=== PATIENT | female | born 1945 | race Two or more races ===

== ENCOUNTER → 2024-04-27 | Outpatient (CLI) | payer MEDICARE, BC, SELFPAY ==
[2024-04-27 13:55] LABS: Basophils % (Auto) 0 % (0-2.5); Eosinophils # (Auto) 0.1 Thou/mm3 (0.0-0.5); Eosinophils % (Auto) 1 % (0-10); Hematocrit 34.4 % (36.0-46.0); Immature Granulocytes % (Auto) 0 % (0-0); Immature Granulocytes Auto 0.02 Thou/mm3 (0.00-0.00); Lymphocytes # (Auto) 1.5 Thou/mm3 (1.0-4.8); Lymphocytes % (Auto) 27 % (10-50); Mean Corpuscular Hemoglobin 27.2 pg (25.0-35.0); Mean Corpuscular Volume 85 fL (80-100); Monocytes # (Auto) 0.4 Thou/mm3 (0.0-0.8); Monocytes % (Auto) 7 % (0-12); Neutrophils # (Auto) 3.5 Thou/mm3 (1.8-7.7); Neutrophils % (Auto) 64 % (37-80); Nucleated Red Blood Cell % 0 /100 WBC (0); Platelet Count 283 Thou/mm3 (140-440); RDW Standard Deviation 40.2 fL (36.4-46.3); Red Blood Count 4.05 Miln/mm3 (4.00-5.20); White Blood Count 5.5 Thou/mm3 (3.6-11.0)
[2024-04-27 14:33] LABS: Alanine Aminotransferase 14 U/L (10-49); Albumin, Serum 4.1 gm/dL (3.4-4.8); Albumin/Globulin Ratio 1.9 (1.2-2.2); Alkaline Phosphatase 93 U/L (46-116); Anion Gap 8 (7-16); Aspartate Amino Transferase 21 U/L (0-34); BUN/Creatinine Ratio 23 Ratio (12-20); Bilirubin,Total 0.5 mg/dL (0.3-1.2); Blood Urea Nitrogen 21 mg/dL (9-23); Calcium 9.2 mg/dL (8.3-10.6); Calcium (Corrected) 9.2 mg/dL (8.5-10.1); Carbon Dioxide 26.1 mMol/L (20.0-31.0); Cardiac Risk Estimate 3.7 RATIO (3.7-5.6); Chloride 102 mMol/L (98-107); Cholesterol 223 mg/dL (132-200); Creatinine (Component) 0.9 mg/dL (0.6-1.3); Globulin 2.2 gm/dL (2.3-3.5); Glucose 89 mg/dL (74-106); HDL Cholesterol 60 mg/dL (40-60); LDL Cholesterol,Calculated 141 mg/dL (0-130); Osmolality,Calculated 273 (275-295); Potassium 4.5 mMol/L (3.4-5.1); Sodium 136 mMol/L (136-145); Thyroid Stimulating Hormone 2.13 uIU/mL (0.55-4.78); Total Protein 6.3 gm/dL (5.7-8.2); Triglycerides 112 mg/dL (30-150); eGFR > 60 See Note
[2024-04-27 14:46] LABS: Glucose Estimated Average 108 mg/dL (80-131); Hemoglobin A1C 5.4 % Hgb (4.8-6.0)
== END | disposition home or self-care (01) ==
LOC: COPL 12:33
PROVIDERS: PCP Family Medicine; Referring Provider Internal Medicine; Visit Provider Internal Medicine
DX: F41.1 Generalized anxiety disorder (principal); I48.0 Paroxysmal atrial fibrillation; Z95.5 Presence of coronary angioplasty implant and graft
CPT/HCPCS: 36415; 80053; 80061; 83036; 84443; 85025

== ENCOUNTER 2024-05-15 12:20 | Day surgery (SDC) | payer MEDICARE, SELFPAY ==
[2024-05-14 13:38] VITALS: BMI 31.1
[2024-05-15] VITALS (13 sets, daily range): BP systolic 115–175; BP diastolic 55–87; PULSE 64–75; RESP 9–18; TEMP 36.5–37.2; O2SAT 95–100; BMI 29.6
[2024-05-15] MEDS: ONDANSETRON INJ 2 MG/ML INJ 2 ML 4 MG IV (14:09)
[2024-05-15] MEDS: DiphenhydrAMINE INJ 50 MG/ML VIAL 25 MG IV (14:22)
[2024-05-15] MEDS: fentaNYL CIT INJ 50 mCg/ML AMP 2ML (ASD USE ONLY) IV (14:22)
[2024-05-15] MEDS: MIDAZOLAM INJ 1 MG/ML VIAL 2 ML (ASD USE ONLY) 2 MG IV (14:23)
== END 2024-05-15 15:26 | disposition home or self-care (01) ==
PROVIDERS: PCP Family Medicine; Referring Provider Specialist; Visit Provider Specialist
PROC: (CPT 43239; principal; 2024-05-15 13:30)
PROC: 0DBE8ZX Excision of Large Intestine, Via Natural or Artificial Opening Endoscopic, Diagnostic (ICD-10-PCS; CPT 45380; 2024-05-15 13:30)
DX: R19.5 Other fecal abnormalities (principal); D12.3 Benign neoplasm of transverse colon; K64.9 Unspecified hemorrhoids; K20.91 Esophagitis, unspecified with bleeding; K29.71 Gastritis, unspecified, with bleeding
CPT/HCPCS: 45385; J1200; J2250; J2405; J3010

== ENCOUNTER → 2024-06-02 | Outpatient (CLI) | payer MEDICARE, BC, SELFPAY ==
[2024-06-02 12:32] LABS: Basophils % (Auto) 0 % (0-2.5); Eosinophils # (Auto) 0.1 Thou/mm3 (0.0-0.5); Eosinophils % (Auto) 1 % (0-10); Hematocrit 36.3 % (36.0-46.0); Hemoglobin 11.7 g/dL (12.0-16.0); Immature Granulocytes % (Auto) 1 % (0-0); Immature Granulocytes Auto 0.05 Thou/mm3 (0.00-0.00); Immature Reticulocyte Fraction 9.7 % (3.0-15.9); Lymphocytes # (Auto) 1.6 Thou/mm3 (1.0-4.8); Lymphocytes % (Auto) 32 % (10-50); Mean Corpuscular HGB Conc 32.2 g/dl (31.0-37.0); Mean Corpuscular Hemoglobin 27.8 pg (25.0-35.0); Mean Corpuscular Volume 86 fL (80-100); Monocytes # (Auto) 0.4 Thou/mm3 (0.0-0.8); Monocytes % (Auto) 8 % (0-12); Neutrophils # (Auto) 2.9 Thou/mm3 (1.8-7.7); Neutrophils % (Auto) 58 % (37-80); Nucleated Red Blood Cell % 0 /100 WBC (0); Platelet Count 286 Thou/mm3 (140-440); RDW Standard Deviation 41.1 fL (36.4-46.3); Red Blood Count 4.21 Miln/mm3 (4.00-5.20); Reticulocyte % (Auto) 1.2 % (0.5-1.5); Reticulocyte Absolute Auto 50.1 Biln/L (25.0-75.0); Reticulocyte Hgb Content 30.6 pg (28.0-35.0)
[2024-06-02 13:01] LABS: Alanine Aminotransferase 14 U/L (10-49); Albumin, Serum 4.5 gm/dL (3.4-4.8); Alkaline Phosphatase 88 U/L (46-116); Anion Gap 6 (7-16); Aspartate Amino Transferase 21 U/L (0-34); BUN/Creatinine Ratio 23 Ratio (12-20); Bilirubin,Total 0.4 mg/dL (0.3-1.2); Blood Urea Nitrogen 18 mg/dL (9-23); Calcium 9.3 mg/dL (8.3-10.6); Calcium (Corrected) 9.3 mg/dL (8.5-10.1); Carbon Dioxide 30.1 mMol/L (20.0-31.0); Chloride 101 mMol/L (98-107); Creatinine (Component) 0.8 mg/dL (0.6-1.3); Globulin 2.3 gm/dL (2.3-3.5); Glucose 84 mg/dL (74-106); Osmolality,Calculated 274 (275-295); Potassium 3.9 mMol/L (3.4-5.1); Sodium 137 mMol/L (136-145); Total Protein 6.8 gm/dL (5.7-8.2); eGFR > 60 See Note
[2024-06-02 13:10] LABS: Vitamin B12 395 pg/mL (211-911)
[2024-06-02 13:59] LABS: Ferritin 39 ng/mL (7.3-270.7); Total Iron Binding Capacity 340 mcg/dL (250-425)
[2024-06-02 14:10] LABS: Iron 80 mcg/dL (50-170); Percent Iron Saturation 23 % (20-55); Unsaturated Iron Binding 260 (225-295)
[2024-06-08 17:49] LABS: Hemoglobinopathy Hematocrit 37.9 % (35.0-45.0); Hemoglobinopathy Hemoglobin 11.8 g/dL (11.7-15.5); Hemoglobinopathy Hemoglobin A2 1.9 % (2.0-3.2); Hemoglobinopathy MCH 27.6 pg (27.0-33.0); Hemoglobinopathy MCV 88.6 fL (80.0-100.0); Hemoglobinopathy Red Blood Cnt 4.28 Million/uL (3.80-5.10)
[2024-06-09 07:04] LABS: Hemoglobinopathy Hemoglobin A 98.1 %
[2024-06-12 06:35] LABS: Vitamin B1 (Thiamine)* 11 nmol/L (8-30)
== END | disposition home or self-care (01) ==
LOC: COPL 10:56
PROVIDERS: PCP Family Medicine; Referring Provider Specialist; Visit Provider Specialist
DX: D64.9 Anemia, unspecified (principal)
CPT/HCPCS: 36415; 80053; 82607; 82728; 83020; 83540; 83550; 84207; 84425; 85014; 85018; 85025; 85041; 85046

== ENCOUNTER 2024-12-07 19:32 | Emergency (ER) | payer MEDICARE, BC, SELFPAY ==
[2024-12-07 20:55] VITALS: BP 137/72; PULSE 88; RESP 18; TEMP 36.8; O2SAT 96
--- NOTE | 2024-12-07 21:45 | EDNOTE_ITS ---
ED Eye Problem RME/HPI General Chief complaint: Eye Problems Stated complaint: loss of vision and headache started yesterday at a Time Seen by Provider: 12/07/24 21:56 Arrival date/time: 12/07/24 19:32 RME / HPI RME / HPI Narrative: This section includes all my notes and documentations, including HPI, PE, and ED course. Juaquin Arroyo MD HPI: 79yo female here with blurry vision and decreased to her left eye since yesterday at 1600, about 30 hours ago. Patient does have a headache. No fever, chills, body aches, nausea, or vomiting. She does smoke cigarettes. No speech impairment. No facial droop. No loss of power in the arms or legs. No chest pain. No other complaints reported. ROS: All negative except as documented in HPI. Physical Exam: General: Alert and oriented. No acute distress when remaining still. Eyes: Conjunctivae and lids clear. PERRL. EOMI. Orbits soft. Severely decreased left visual acuity noted, can't see fingers beyond foot. ENT: No nasal congestion. Neck: Supple. No carotid bruit. No JVD. Heart: RRR. Lungs: No respiratory distress. Decreased air movement with rhonchi. Skin: Warm and dry. Neuro: Alert and oriented X 3. Cranial nerves II to XII normal. No peripheral motor deficits. I reviewed all diagnostic test results. My interpretation of the chest x-ray is NAD. My review of the CT head report is NAD. My review of the CTA head neck report is NAD. Blood tests are unremarkable. UA remarkable for positive leukocyte esterase, 16 RBCs, 17 WBCs, and bacteria. COVID/Influenza negative. At this point, diagnoses include visual impairment of left eye, UTI, and b ronchospasm. Treatment here included Solumedrol, Zofran, Duoneb, IV fluid, Rocephin. Patient remained stable. I discussed the case with our teleneurologist. About the presentation and exam and diagnostics and treatments here. And possible need of further care in the hospital. Recommended transfer to another facility with ophthalmology service. I discussed the case with Dr. Khan, train brake operator at [facility]. About the presentation and exam and diagnostics and treatments here. And need of further care in the hospital there. Will accept the patient. Juaquin Arroyo MD Related Data Home Medications ?Medication ?Instructions ?Recorded ?Confirmed atorvastatin 20 mg tablet 20 mg PO QPM 08/05/22 fluoxetine 20 mg capsule 20 mg PO QDAY 08/05/2205/15 omeprazole 40 mg capsule,delayed 40 mg PO QDAY 3 05/15/24 release alprazolam 0.25 mg tablet 0.25 mg PO BID 05/15/2405/06 Held on 05/15/24. Instructions: Resume on 05/16/24. amlodipine 5 mg tablet 5 mg PO QDAY 05/15/24 clopidogrel 75 mg tablet 75 mg PO QDAY 05/15/2405/15 losartan 100 mg tablet 100 mg PO QDAY 05/15/2405/06 Previous Rx's ?Medication ?Instructions ?Recorded metoprolol succinate 50 mg capsule 50 mg PO QDAY Sat #30 ea 08/06/22 sprinkle, ext. release 24 hr Allergies Allergy/AdvReac Type Severity Reaction Status Date / Time No Known Allergies Allergy Verified 12/07/24 19:38 Review of Systems Review of Systems Systems Reviewed: All systems reviewed, normal except as documented Past Medical History Past Medical History NEUROLOGIC: Negative Neurological Disorders or Seizures CARDIAC: Positive Cardiac Disorders (cardiac ablasion), Atrial Fibrillation, Hypercholesterolemia, Hypertension and Varicose Veins; Negative Aneurysm or Congestive Heart Failure RESPIRATORY: Positive Asthma (SOB), Smoking and Tobacco Use; Negative Chronic Obstructive Pulmonary Disease (COPD), Bronchitis, Pulmonary Fibrosis or Pulmonary Embolism GASTROINTESTINAL: Positive Gastrointestinal Disorders and Gastroesophageal Reflux Disease GENITOURINARY: Negative Genitourinary Disorders or Renal Disease REPRODUCTIVE: Negative Breast Cancer MUSCULOSKELETAL: Positive Arthritis and Carpal Tunnel Syndrome (carpal tunnel surgery-BL); Negative Musculoskeletal Disorders or Rheumatoid Arthritis ENT: Positive Cataracts ENDOCRINE: Positive Endocrine Disorders (1 thryoid removed 30 years ago d/t nodule); Negative Diabetes Mellitus Type 1 or Diabetes Mellitus Type 2 HEMATOLOGIC: Negative Blood Disorders or Sickle Cell Disease PSYCHO/SOCIAL: Positive Depression and Anxiety OTHER HISTORY: Positive Falls; Negative Hospitalization, Autoimmune Disease, Blood Transfusions, Anesthesia Reactions, MRSA, VRSA, Vancomycin-Resistant Enterococci, Cancer or Breast Cancer Family History FAMILY HISTORY: Positive Family Cardiac Disorders and Family Cancer (pt's sister-breast cancer); Negative Family Psychiatric Problems, Family Respiratory Disorders, Family Gastrointestinal Problems, Family Surgery or Family Anesthesia Reaction Surgical History SURGICAL: Positive Endocrine Surgery (thyroid surgery), Thyroidectomy, Eye Surgery (cataracts) and Hysterectomy; Negative Cardiac Surgery, Abdominal Surgery, Joint Replacement or Section Social History SMOKING STATUS: Never smoker SECOND HAND EXPOSURE: Yes SUBSTANCE USE: does not use ED Exam Narrative Physical exam: As noted in HPI. Course Quality Measures none Orders Category Date Time Status Bedside COVID-19 Antigen Test NOW Care 12/07/24 21:52 Completed Bedside Influenza A&B Antigen Test NOW Care 12/07/24 21:52 Completed Saline [Insert IV] NOW Care 12/07/24 21:52 Completed Transfer to another facility [Transfer/Discharge] Stat Discharge 12/08/24 03:[address] angio stroke protocol Stat Exams 12/07/24 21:[address] head/brain wo con Stat Exams 12/07/24 21:53 Completed XR chest 1V portable Stat Exams 12/07/24 21:53 Completed BMP [Basic Metabolic Panel] Stat Lab 12/07/24 22:30 Completed BNP [B-Type Natriuretic Peptide] Stat Lab 12/07/24 22:30 Completed CBC Stat Lab 12/07/24 22:30 Completed CRP [C-Reactive Protein] Stat Lab 12/07/24 22:30 Completed ESR [Sed Rate (ESR)] Stat Lab 12/07/24 22:30 Completed Free T4 (Free Thyroxine) Stat Lab 12/07/24 22:30 Completed Magnesium Stat Lab 12/07/24 22:30 Completed PT [Prothrombin Time with INR] Stat Lab 12/07/24 22:30 Completed PTT [Partial Thromboplastin Time] Stat Lab 12/07/24 22:30 Completed Procalcitonin Stat Lab 12/07/24 22:30 Completed TSH [Thyroid Stimulating Hormone] Stat Lab 12/07/24 22:30 Completed UA, C/S IF [Urinalysis, C/S if Indicated] Stat Lab 12/07/24 22:05 Completed Urine Culture Stat Lab 12/07/24 22:05 Received Albuterol/Ipratr Rt Alanis [Duoneb Rt Alanis] Med 12/07/24 21:52 Discontinued 3 ml INH X1 ONE MethylPREDNISolone.* [SoluMEDROL Inj] Med 12/07/24 21:52 Discontinued 125 mg IVP X1 ONE Ondansetron Inj [Zofran Inj] Med 12/07/24 22:35 Discontinued 4 mg IVP X1 ONE Sodium Chloride 0.9% 1000 ml [Ns] 1,000 ml Med 12/07/24 22:35 Discontinued IV 999 mls/hr cefTRIAXone/D5w 1gm IV premix [Rocephin/D5w 1gm IV Med 12/07/24 22:35 Discontinued premix] 1 g in 50 ml IV X1 Vital Signs Vital signs: Vital Signs Temperature 98.2 F 12/07/24 20:55 Pulse Rate 88 12/07/24 20:55 Respiratory Rate 18 12/07/24 20:55 Blood Pressure 137/72 H 12/07/24 20:55 Pulse Oximetry (%) 96 12/07/24 20:55 Oxygen Delivery Method Room Air 12/07/24 20:55 Eye MDM Narrative MDM Narrative:: 79yo female here with blurry vision and decreased to her left eye since yesterday at 1600, about 30 hours ago. Patient does have a headache. No fever, chills, body aches, nausea, or vomiting. She does smoke cigarettes. No speech impairment. No facial droop. No loss of power in the arms or legs. No chest pain. No other complaints reported. Patient data External records reviewed:: [facility] previous records (Per chart review, patient was admitted here on 06/11/23 for acute exacerbation of chronic obstructive pulmonary disease) Clinical information provided by:: patient Social determinants that could affect healthcare access:: substance use (tobacco use) Patient has the following chronic illnesses:: COPD, HTN, GERD, HLD How is presenting disease/condition affected by chronic disease/condition?: uneffected by Evaluation data The following diagnostics were reviewed and interpreted by me:: lab results and radiology exam(s) Lab and/or radiology exams considered but not ordered:: none Interpretation Summary: I reviewed all diagnostic test results. My interpretation of the chest x-ray is NAD. My review of the CT head report is NAD. My review of the CTA head neck report is NAD. Blood tests are unremarkable. UA remarkable for positive leukocyte esterase, 16 RBCs, 17 WBCs, and bacteria. COVID/Influenza negative. Medications / Prescriptions Medications or Prescriptions considered but not ordered:: none Medication administrations:: Medication Administration History Discontinued Medications Albuterol/Ipratropium (Albuterol/Ipratropium (Duoneb) Rt Alanis 3 Ml Nebu) 3 ml INH X1 ONE Stop: 12/07/24 21:53 Last Admin: 12/07/24 22:14 Dose: 3 ml Documented By: SUMEET Ceftriaxone Sodium/Dextrose (Rocephin/D5w 1gm Iv Premix) 1 g in 50 mls @ 100 mls/hr IV X1 ONE Stop: 12/07/24 23:04 Last Infusion: 12/08/24 00:12 Dose: Infused Documented By: Admin: 12/07/24 23:28 Dose: 100 mls/hr Documented By: DAVID Sodium Chloride (Ns) 1,000 mls @ 999 mls/hr IV .Q1H1M ONE Stop: 12/07/24 23:35 Last Infusion: 12/08/24 01:15 Dose: Infused Documented By: Admin: 12/07/24 23:27 Dose: 999 mls/hr Documented By: DAVID Methylprednisolone Sodium Succinate (Methylprednisolone Sod Succ 62.5 Mg/Ml 2ml Vial) 125 mg IVP X1 ONE Stop: 12/07/24 21:53 Last Admin: 12/07/24 23:28 Dose: 125 mg Documented By: DAVID Ondansetron HCl (Ondansetron Inj 2 Mg/Ml Inj 2 Ml) 4 mg IVP X1 ONE; Protocol Stop: 12/07/24 22:36 Last Admin: 12/07/24 23:27 Dose: 4 mg Documented By: DAVID Solumedrol, Zofran, Duoneb, IV fluid, Rocephin Consultations Consultation(s) initiated? (list below): Yes Consultation #1 (Physician, Specialty, Details): I discussed the case with our teleneurologist. About the presentation and exam and diagnostics and treatments here. And possible need of further care in the hospital. Recommended transfer to another facility with ophthalmology service. Consultation #2 (Physician, Specialty, Details): I discussed the case with Dr. Khan, train brake operator from [facility]. About the presentation and exam and diagnostics and treatments here. And need of further care in the hospital there. Will accept the patient. Diagnosis Eye Problem Differential Diagnosis: subconjunctival hemorrhage, glaucoma, corneal ulcer and other (retinal detachment, CVA) Most likely diagnosis given after review of the tests above:: Visual impairment of left eye and UTI and bronchospasm Admission Indicated Admission indicated?: not indicated Explain why admission is indicated or not indicated:: No ophthalmology service at this facility. Admission Request Was there a request for admission?: No Disposition Plan Disposition Plan: Transfer Discharge Plan Plan Patient Disposition: [facility] Facility Pt Being Transferred to: [facility] Service Needed for Transfer: Opthalmology Prescriptions/Referrals Prescriptions/Med Rec: No Action atorvastatin 20 mg Tablet 20 mg PO QPM omeprazole 40 mg Capsule,Delayed Release(Dr/Ec) 40 mg PO QDAY fluoxetine 20 mg Capsule 20 mg PO QDAY metoprolol succinate 50 mg capsule,sprinkle,ER 24hr 50 mg PO QDAY 30 Days Qty: 30 2RF amlodipine 5 mg Tablet 5 mg PO QDAY clopidogrel 75 mg Tablet 75 mg PO QDAY alprazolam 0.25 mg Tablet 0.25 mg PO BID losartan 100 mg Tablet 100 mg PO QDAY Referrals: Mohan Ventura MD [Primary Care Provider] - In 1 week Problem List Clinical Impression: Visual impairment of left eye, UTI (urinary tract infection), Bronchospasm Patient/Caregiver Discharge Instructions Print Language: Finnish Stand Alone Forms: Nicole Award Info., Patient Portal Info Letter
--- NOTE | 2024-12-07 21:52 | XR_ITS ---
Examination: CTA carotids with intravenous contrast CTA brain, head with intravenous contrast. 2-D sagittal, coronal reconstructions. 3-D reconstructions. Exam date and time: December 07, 2024 11:02 PM INDICATIONS: Loss of vision in the left eye beginning yesterday CTDI: vol (mGy) 48 DLP: (mGycm) 45 Technique: Multiple CTA axial brain, head carotid images post intravenous contrast injection 75 cc, [id number]. 2-D sagittal, coronal reconstructions. 3-D reconstructions, 3-D post processing including vascular maximum intensity projection images. Low dose protocols were performed. One or more of the following dose reduction techniques were used; automated exposure control, adjustment of the mA and/or KV according to patient size, use of iterative reconstruction technique. Findings: Enlarged left thyroid lobe Heavy calcification right carotid bifurcation but no significant common carotid carotid bifurcation or internal carotid stenoses bilaterally Dominant right vertebral artery with no critical stenoses Intracranial vertebral arteries basilar artery and posterior cerebral branches fill with no large vessel occlusions M1 segments middle cerebral arteries middle cerebral artery trifurcation vessels and anterior cerebral arteries fill with no large vessel occlusions IMPRESSION: No significant neck arterial stenoses No cerebral artery vessel arterial occlusions or thrombus Given the patient's presentation, consider brain MRI MRA stroke protocol, follow-up
--- NOTE | 2024-12-07 21:53 | XR_ITS ---
Examination: AP chest single view Technique AP portable upright chest single view Date and time: December 07, 2024 1015 hours Comparison March 11, 2024 INDICATIONS: Shortness of breath beginning yesterday. FINDINGS: Large fat pad at the right cardiophrenic angle Mild prominence of ventricle No pulmonary edema Ectatic thoracic aorta Prominent osteopenia IMPRESSION: No pneumonia or pulmonary edema
--- NOTE | 2024-12-07 21:53 | XR_ITS ---
Examination: CT brain head without contrast. 2-D sagittal coronal reconstructions Date and time of exam:December 08, 2019 5:11 PM INDICATIONS: Headaches beginning last night CTDI: vol (mGy):48 DLP: (mGycm):945 Technique: Multiple CT axial sections of the brain have been obtained, 5 mm slice thickness. Contrast has not been administered. 2-D sagittal, coronal reconstructions have been obtained Low dose protocols were performed. One or more of the following dose reduction techniques were used; automated exposure control, adjustment of the mA and/or KV according to patient size, use of iterative reconstruction technique. Findings: No significant ventricular enlargement. Intra-axial or extra-axial hemorrhage density is not seen. No mass effect or midline shift Basal cisterns are not remarkable. Fourth ventricle is midline. Cranial vault intact. Impression: Negative for acute hemorrhage, mass effect or midline shift Advise clinical correlation and follow up accordingly
[2024-12-07 22:14] LABS: Collection Type, Urine Clean Catch
[2024-12-07] MEDS: ALBUTEROL/IPRATROPIUM (Duoneb) RT SOL 3 ML NEBU INH (22:14)
[2024-12-07 22:17] VITALS: PULSE 81; RESP 18; O2SAT 100
[2024-12-07 22:22] LABS: Bacteria,Urine Rare; Bilirubin,Urine Negative (Negative); Blood,Urine 1+ (Negative); Clarity,Urine Clear (Clear/Hazy); Color,Urine Yellow (Lt Yel-Yel); Glucose, Urine Negative (Negative); Ketones,Urine Negative (Negative); Leukocyte Esterase,Urine Positive (Negative); Nitrite,Urine Negative (Negative); PH,Urine 5.5 (5.0-7.0); Protein,Urine Negative (Neg - Trace); RBC,Urine 16 /hpf (0-3); Specific Gravity,Urine 1.030 (1.001-1.035); Squamous Epithelial Cell,Urine 7 /hpf (0-5); Urobilinogen,Urine Negative mg/dL (0.0-1.0); WBC,Urine 17 /hpf (0-5)
[2024-12-07 22:23] LABS: Culture Indicated,Urine Yes
[2024-12-07 23:01] LABS: Basophils # (Auto) 0.0 Thou/mm3 (0.0-0.2); Basophils % (Auto) 1 % (0-2.5); Eosinophils # (Auto) 0.2 Thou/mm3 (0.0-0.5); Eosinophils % (Auto) 3 % (0-10); Hematocrit 36.1 % (36.0-46.0); Hemoglobin 11.2 g/dL (12.0-16.0); Immature Granulocytes Auto 0.02 Thou/mm3 (0.00-0.00); Lymphocytes # (Auto) 1.8 Thou/mm3 (1.0-4.8); Lymphocytes % (Auto) 31 % (10-50); Mean Corpuscular HGB Conc 31.0 g/dl (31.0-37.0); Mean Corpuscular Hemoglobin 27.3 pg (25.0-35.0); Mean Corpuscular Volume 88 fL (80-100); Monocytes # (Auto) 0.6 Thou/mm3 (0.0-0.8); Monocytes % (Auto) 10 % (0-12); Neutrophils # (Auto) 3.2 Thou/mm3 (1.8-7.7); Neutrophils % (Auto) 56 % (37-80); Nucleated Red Blood Cell # 0.00 Thou/mm3 (0.00-0.00); Nucleated Red Blood Cell % 0 /100 WBC (0); Platelet Count 246 Thou/mm3 (140-440); RDW Standard Deviation 42.5 fL (36.4-46.3); Red Blood Count 4.10 Miln/mm3 (4.00-5.20); White Blood Count 5.7 Thou/mm3 (3.6-11.0)
[2024-12-07 23:22] LABS: Sed Rate (ESR) 21 mm/hr (0-30)
[2024-12-07] MEDS: SODIUM CHLORIDE 0.9% 1000 ML 1,000 ML 999 ML IV (23:27)
[2024-12-07] MEDS: ONDANSETRON INJ 2 MG/ML INJ 2 ML 4 MG IVP (23:27)
[2024-12-07] MEDS: cefTRIAXone/D5w 1gm IV premix 1 G/50 ML BAG IV (23:28)
[2024-12-07] MEDS: MethylPREDNISolone SOD SUCC 62.5 MG/ML 2ML VIAL 125 MG IVP (23:28)
[2024-12-07 23:38] LABS: INR 1.0 (0.9-1.3); Partial Thromboplastin Time 24.4 Seconds (22.0-36.0); Prothrombin Time 10.5 Seconds (9.0-12.2)
[2024-12-07 23:40] LABS: Anion Gap 9 (7-16); BUN/Creatinine Ratio 27 Ratio (12-20); Blood Urea Nitrogen 24 mg/dL (9-23); C-Reactive Protein < 0.5 mg/dL (0.0-0.9); Calcium 8.9 mg/dL (8.3-10.6); Carbon Dioxide 28.4 mMol/L (20.0-31.0); Chloride 105 mMol/L (98-107); Creatinine (Component) 0.9 mg/dL (0.6-1.3); Free T4 (Free Thyroxine) 1.15 ng/dL (0.89-1.76); Glucose 96 mg/dL (74-106); Magnesium 1.6 mg/dL (1.6-2.6); Osmolality,Calculated 287 (275-295); Potassium 3.8 mMol/L (3.4-5.1); Procalcitonin 0.04 ng/ml (0.0-0.49); Sodium 142 mMol/L (136-145); Thyroid Stimulating Hormone 4.79 uIU/mL (0.55-4.78); eGFR > 60 See Note
[2024-12-07 23:51] LABS: B-Type Natriuretic Peptide 106 pg/mL (0-100)
[2024-12-08 01:21] VITALS: BP 147/62; PULSE 87; RESP 18; TEMP 37.2; O2SAT 94
--- NOTE | 2024-12-08 01:25 | ESCONSULT_ITS ---
Tele Neuro Consultation Consultation Date 12/08/24 Most Recent Vital Signs Last Vital Signs Temp 98.9 F 12/08/24 01:21 Pulse 87 12/08/24 01:21 Resp 18 12/08/24 01:21 BP 147/62 H 12/08/24 01:21 Pulse Ox 94 L 12/08/24 01:21 O2 Del Method Room Air 12/08/24 01:21 Laboratory-Coagulation Panel PT 10.5 Seconds (9.0-12.2) 12/07/24 22:30 INR 1.0 (0.9-1.3) 12/07/24 22:30 APTT 24.4 Seconds (22.0-36.0) 12/07/24 22:30 Consultation Narrative [facility] TeleNeurology Consult Services Stat Consult Patient Name:???tabby cortes Date of :???1945 Identification Number:??? 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 Impression Acute vision loss in left eye: - Admit patient for further evaluation and management - Order MRI brain with and without contrast - Order MRI orbit with fat saturation - Consult ophthalmology for fundoscopic exam and possible B-scan ultrasound of the orbit - Continue Plavix for secondary stroke prevention - Continue current statin therapy - Defer aspirin due to history of GI bleeding, pending cardiology and gastroenterology input - Perform 2D echocardiogram to evaluate for cardiac source of embolism - Initiate PT/OT/[employer] evaluation for rehab potential - Maintain permissive hypertension up to 220/120 mmHg - Monitor and maintain euglycemia, eunatremia, and euvolemia Severe headache: - Administer migraine cocktail for symptomatic relief: 500cc IVF NS 0.9%, Mg 2g,? diphenhydramine (Benadryl) 25 mg IV followed by prochlorperazine (Compazine) 10 mg IV, Tylenol 1g IV>PO > Toradol 30mg.? Can repeat protocol Q6hr. may repeat above protocol in addition of 8mg of decadron help prevent short-term recurrence. - Monitor headache intensity and associated symptoms - Evaluate headache characteristics and response to treatment as part of the overall neurological workup Cardiovascular risk factors: - Continue current Plavix therapy - Continue current statin therapy - Order CBC, CMP, UA, TSH, LDL, A1C for cardiovascular risk assessment - Defer addition of aspirin due to history of GI bleeding, pending cardiology and gastroenterology consultation Recommendations: Our recommendations are outlined below. Advanced Imaging: CTA Head and Neck Completed. LVO:No Patient is not a candidate for DARLENE Metrics: Dispatch Time: 12/07/2024 21:50:58 Callback Response Time: 12/07/2024 21:56:31 Primary Provider Notified of Diagnostic Impression and Management Plan on: 12/08/2024 01:25:24 CT HEAD: I personally reviewed all the CT images that were available to me and it showed:?no acute findings Chief Complaint: vision loss History of Present Illness:Patient is a 79 year old Female. Tabby Cortes, a 79-year-old woman with a history of heart condition, presents with blurry vision in her left eye and headache for the past two days. The patient reports a sudden onset of vision loss in her left eye yesterday evening, describing it as not a complete loss but it's pretty bad with a black spot in her vision. She mentions having some trouble with her vision prior to this incident but had attributed it to needing new glasses. The patient has a medical history that includes a heart condition and a history of gastrointestinal bleeding and ulcers. She currently takes Plavix and a cholesterol medication (statin). She was recently taken off aspirin by her foot roentgenologist due to stomach bleeding. The patient rates her headache as an 8 out of 10 in severity. She reports that sound bothers her real bad but denies any associated nausea. She also denies experiencing slurred speech, weakness, or numbness. The patient has no history of migraines. As of note, the patient is currently on Solu-Medrol. Review of Systems General: Negative for fever, chills. Positive for body aches. HEENT: Positive for blurry vision in left eye, headache. Negative for complete vision loss. Gastrointestinal: Negative for nausea, vomiting. Neurological: Negative for slurred speech, weakness, numbness. Past Medical History: ?Hypertension Medications: No Anticoagulant use? Antiplatelet use:?Yes?plavix Reviewed EMR for current medications Allergies:? Reviewed Social History: Drug Use: No Family History: There is no family history of premature cerebrovascular disease pertinent to this consultation ROS : 14 Points Review of Systems was performed and was negative except mentioned in HPI. Past Surgical History: There Is No Surgical History Contributory To Today?s Visit Examination: BP(145/81),?Pulse(81), 1A: Level of Consciousness - Alert; keenly responsive?+ 0 1B: Ask Month and Age - Both Questions Right?+ 0 1C: Blink Eyes & Squeeze Hands - Performs Both Tasks?+ 0 2: Test Horizontal Extraocular Movements - Normal?+ 0 3: Test Visual Benjamin - Complete Hemianopia?+ 2 4: Test Facial Palsy (Use Grimace if Obtunded) - Normal symmetry?+ 0 5A: Test Left Arm Motor Drift - No Drift for 10 Seconds?+ 0 5B: Test Right Arm Motor Drift - No Drift for 10 Seconds?+ 0 6A: Test Left Leg Motor Drift - No Drift for 5 Seconds?+ 0 6B: Test Right Leg Motor Drift - No Drift for 5 Seconds?+ 0 7: Test Limb Ataxia (FNF/Heel-Wolff) - No Ataxia?+ 0 8: Test Sensation - Normal; No sensory loss?+ 0 9: Test Language/Aphasia - Normal; No aphasia?+ 0 10: Test Dysarthria - Normal?+ 0 11: Test Extinction/Inattention - No abnormality?+ 0 NIHSS Score:?2 Spoke with :?Dr. Arroyo This consult was conducted in real time using interactive audio and video technology. Patient was informed of the technology being used for this visit and agreed to proceed. Patient located in hospital and provider located at home/office setting. Patient is being evaluated for possible acute neurologic impairment and high probability of imminent or life - threatening deterioration.I spent total of 35 minutes providing care to this patient, including time for face to face visit via telemedicine, review of medical records, imaging studies and discussion of findings with providers, the patient and / or family. Dr Arya Sen [facility] For Inpatient follow-up with [facility] physician please call [facility] at . As we are not an outpatient service for any post hospital discharge needs please contact the hospital for assistance. If you have any questions for the [facility] physicians or need to reconsult for clinical or diagnostic changes please contact us via [facility] at . Signature :Arslan Sen
--- NOTE | 2024-12-08 03:26 | PC.NURSE ---
Pt accepted to [facility] for ophthalmology for loss of vision. Accepting is MICHAEL receiving ED to ED @1019. Pt being transported via EMS [place] at 0415 crab picker
[2024-12-08 03:42] VITALS: BP 159/86; PULSE 93; RESP 18; TEMP 37; O2SAT 96
--- NOTE | 2024-12-08 04:01 | PC.NURSE ---
REPORT CALLED AND GIVEN TO NURSE AT [facility]
== END 2024-12-08 04:02 | disposition short-term general hospital (02) ==
PROVIDERS: Emergency Provider Emergency Medicine; PCP Family Medicine
DX: H54.62 Unqualified visual loss, left eye, normal vision right eye (principal); J98.01 Acute bronchospasm; N39.0 Urinary tract infection, site not specified; Z75.1 Person awaiting admission to adequate facility elsewhere
CPT/HCPCS: 36415; 70450; 70496; 70498; 71045; 80048; 81001; 83735; 83880; 84145; 84439; 84443; 85025; 85610; 85652; 85730; 86140; 87086; 87400; 87811; 94640; 96361; 96365; 96375; 99283; A4649; A9270; J0696; J2405; J2919; J7030; Q9967